=== PATIENT | male | born 1955 | race Caucasian/White ===

== ENCOUNTER 2021-04-16 08:33 | Outpatient (REF) | payer BC, SELFPAY ==
--- NOTE | 2021-04-16 13:08 | MHC.AU.AHA ---
Adult Audiological Evaluation Date of Visit: 04/16/21 Lead Business Analyst Used: Not Applicable Reason for Appointment: Audiologic re-evaluation due to increasing difficulties understanding speech. Previous Hearing Test Results: 03/22/2020 [facility] Mild dropping to profound sensorineural hearing loss bilaterally with 44% speech understanding for the right ear and 32% for the left ear at 80 dB HL. 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 Hearing Evaluation: Transducer(s) Used: Insert Earphones, Bone Conduction Method: Conventional Audiometry Stimuli Used: Pure Tones Right Ear: Description of Hearing: Mild dropping to profound sensorineural hearing loss Left Ear: Description of Hearing: Mild dropping to profound sensorineural hearing loss Speech Recognition Threshold (SRT): Method Used: Monitored Live Voice Stimuli Used: Spondee Words Right Ear: 45 dB HL Left Ear: 45 dB HL Word Discrimination: Method: Recorded Lists Word Lists Used: NU-6 Right Ear: 32% at 90 dB HL Left Ear: 24% at 90 dB H Most Comfortable Level (MCL): Right Ear: 90 dB HL Left Ear: 90 dB HL Comparison: Compared to the most recent evaluation: Thresholds have decreased bilaterally. Word discrimination scores have decreased bilaterally. Interpretation of Results: Although hearing thresholds have overall decreased 5 dB for both ears, speech discrimination ability has decreased even more to cause significant communication difficulties bilaterally. Hearing aids were reprogrammed to today's test results and decreased compression ratios of the aids with Avila noting some improvement in the sound quality while in the office. Recommendations: - Hearing aid maintenance performed today. - Hearing aid(s) reprogrammed with updated test results. - Given the poor speech discrimination ability for both ears, Avila may be a candidate for a Cochlear Implant. If Avila would like more information regarding Cochlear Implants, he is advised to schedule a medical consultation with [facility] [employer] [facility] Dr. Camden Ricardo. - Audiological re-evaluation in one year. Will send a reminder card. Diagnosis: Primary Diagnosis: H90.3 Bilateral Sensorineural Hearing Loss Secondary Diagnosis: H93.13 Tinnitus, Bilateral Services Performed: Comprehensive Audiological Evaluation (CPT 78061) Signature: Provider: Michael Grimm, CCC-A
== END 2021-04-16 08:34 | disposition home or self-care (01) ==
LOC: HO.SH 08:33
PROVIDERS: PCP Hospitalist; Visit Provider Hospitalist
DX: H90.3 Sensorineural hearing loss, bilateral (principal); H93.13 Tinnitus, bilateral
CPT/HCPCS: 92557

== ENCOUNTER 2022-09-26 11:21 | Outpatient (REF) | payer MEDICARE, SELFPAY | END 2022-09-26 11:22 | disposition home or self-care (01) | LOC: HO.SH 11:21 | PROVIDERS: Visit Provider Physician Assistant | DX: Z01.118 Encounter for examination of ears and hearing with other abnormal findings (principal); H90.3 Sensorineural hearing loss, bilateral | CPT/HCPCS: 92557; 92567 ==